=== PATIENT | male | born 1950 | race Caucasian/White ===

== ENCOUNTER 2016-10-24 22:08 | Observation (INO) | payer OTHER ==
[~2016-10-24] VITALS: Ht 175.3 cm; Wt 96.9 kg
[2016-10-24] MEDS ORDERED: METOPROLOL SUC100 MG PO (23:00)
[2016-10-24] MEDS ORDERED: ASPIRIN81 M2 PO (23:01)
[2016-10-24 23:07] LABS: HEMATOCRIT 47.2 % (38.0-50.0); MCH 29.4 PG (29.0-34.0); MCHC 33.5 G/DL (30.0-36.0); MCV 87.9 FL (86-99); PLATELET COUNT 261 K/uL (156-360); RBC DIS.WIDTH-CV 12.6 % (11.8-14.6); RBC DIS.WIDTH-SD 40.7 % (39-53); RED BLOOD COUNT 5.37 M/uL (4.00-5.50); WHITE BLOOD COUNT 10.8 K/uL (4.1-10.2)
[2016-10-24 23:16] LABS: CHLORIDE 108 mEq/L (99-109); POTASSIUM 4.4 mEq/L (3.7-5.4); SODIUM 139 mEq/L (136-147)
[2016-10-24 23:17] LABS: GLUCOSE 107 mg/dL (70-99)
[2016-10-24 23:19] LABS: ANION GAP 7 MEQ/L (2-14)
[2016-10-24 23:21] LABS: GFR ESTIMATE (CALCULATED) > 59 mL/min/
[2016-10-24 23:22] LABS: UREA NITROGEN (BUN) 17 mg/dL (9-23)
[2016-10-24 23:28] LABS: TROP-I INTERPRETATION NEGATIVE; TROPONIN-I < 0.01 ng/mL (0.0-0.30)
[2016-10-25] MEDS ORDERED: METOPROLOL TART25 MG PO (01:23)
[2016-10-25 03:31] VITALS: BP 189/91
[2016-10-25 06:43] LABS: D-DIMER ELISA 0.35 mg/L FEU (< 0.57); TROP-I INTERPRETATION NEGATIVE; TROPONIN-I 0.01 ng/mL (0.0-0.30)
[2016-10-25 08:54] VITALS: BP 180/82
[2016-10-25] MEDS ORDERED: VALSARTAN160 MG PO (10:54)
[2016-10-25] MEDS ORDERED: METOPROLOL SUCC50 MG PO (10:54)
[2016-10-25] MEDS ORDERED: ATORVASTATIN CA10 MG PO (10:54)
[2016-10-25 12:57] LABS: TROP-I INTERPRETATION NEGATIVE; TROPONIN-I 0.02 ng/mL (0.0-0.30)
[2016-10-25 13:15] VITALS: BP 161/79
== END 2016-10-25 13:40 | disposition home or self-care (01) ==
LOC: EME 22:08 → EDOF 10-25 02:24 → 5WEST 10-25 03:16
PROVIDERS: Hospitalist
DX: R07.89 Other chest pain (principal); I25.2 Old myocardial infarction; I25.10 Atherosclerotic heart disease of native coronary artery without angina pectoris; I10 Essential (primary) hypertension; J44.9 Chronic obstructive pulmonary disease, unspecified; E78.5 Hyperlipidemia, unspecified; G47.30 Sleep apnea, unspecified; R73.01 Impaired fasting glucose; Z95.5 Presence of coronary angioplasty implant and graft; Z66 Do not resuscitate; Z87.891 Personal history of nicotine dependence
CPT/HCPCS: 71020; 80048; 84484; 85027; 85379; 93005; 99281; 99285; G0378

== ENCOUNTER 2017-10-18 07:00 | Day surgery (SDC) | payer OTHER ==
[~2017-10-18] VITALS: Ht 175.3 cm; Wt 97.0 kg
[~2017-10-18 07:00] MED LIST: ATIVAN1 MG PO; ATORVASTATIN CA10 MG PO; COQ-10100 MG PO; DIOVAN HCT 11 TABLET PO; DULERA 100 MCG/13 GM IH; FLONASE SENSIM9.9 ML BOTH NARES; LO-DOSE ASPIRIN81 M1 PO; METOPROLOL SUC100 MG PO; METOPROLOL SUCC50 MG PO; METOPROLOL TART25 MG PO; TOPROL XL25 MG PO; VALSARTAN160 MG PO; VENTOLIN HFA18 GM IH; ZANTAC150 MG PO
[2017-10-18 08:35] VITALS: BP 178/84
[2017-10-18] MEDS ORDERED: COLACE100 MG PO (11:56)
[2017-10-18] MEDS ORDERED: ROXICODONE5 MG PO (11:56)
[2017-10-18 13:20] VITALS: BP 136/69
[2017-10-18 14:20] VITALS: BP 137/66
[2017-10-18 18:47] VITALS: BP 157/67
== END 2017-10-18 18:54 | disposition home or self-care (01) ==
LOC: SDC 07:00
PROC: 0YU54JZ Supplement Right Inguinal Region with Synthetic Substitute, Percutaneous Endoscopic Approach (ICD-10-PCS; principal; 2017-10-18)
DX: K40.90 Unilateral inguinal hernia, without obstruction or gangrene, not specified as recurrent (principal); I10 Essential (primary) hypertension; E78.5 Hyperlipidemia, unspecified; J44.9 Chronic obstructive pulmonary disease, unspecified; F41.9 Anxiety disorder, unspecified; E66.9 Obesity, unspecified; Z68.31 Body mass index [BMI] 31.0-31.9, adult; I25.2 Old myocardial infarction; Z87.891 Personal history of nicotine dependence; Z79.82 Long term (current) use of aspirin; Z95.5 Presence of coronary angioplasty implant and graft
CPT/HCPCS: C1727; C1781; J0330; J0690; J1100; J1170; J2250; J2405; J2765; J3010; J7120